=== PATIENT | male | born 1930 | race Caucasian/White ===

== ENCOUNTER 2016-12-09 08:31 | Outpatient (CLI) | payer OTHER, MEDICARE | END 2016-12-09 08:32 | disposition home or self-care (01) | DX: E78.2 Mixed hyperlipidemia (principal); I10 Essential (primary) hypertension; Z79.899 Other long term (current) drug therapy; R97.20 Elevated prostate specific antigen [PSA] ==

== ENCOUNTER 2018-03-10 08:00 | Outpatient (CLI) | payer OTHER, MEDICARE ==
[2018-03-10 13:31] LABS: BASOPHILS % (AUTO) 0.5 %; EOSINOPHILS # (AUTO) 0.3 10^3/uL (0.0-0.7); EOSINOPHILS % (AUTO) 4.9 %; HGB - HEMOGLOBIN 12.7 g/dL (14.0-18.0); LYMPHOCYTES # (AUTO) 1.5 10^3/uL (1.5-3.5); LYMPHOCYTES % (AUTO) 23.8 %; MEAN CORPUSCULAR HEMOGLOBIN 29.5 pg (27.0-31.0); MEAN CORPUSCULAR HGB CONC 32.7 g/dL (32.0-36.0); MEAN PLATELET VOLUME 9.2 fL (7.4-11.4); MONOCYTES % (AUTO) 14.9 %; NEUTROPHILS # (AUTO) 3.6 10^3/uL (1.5-6.6); NEUTROPHILS % (AUTO) 55.9 %; PLT - PLATELET COUNT 229 10^3/uL (130-450); RED CELL DISTRIBUTION WIDTH 14.9 % (12.0-15.0); WHITE BLOOD COUNT 6.4 x10^3/uL (4.8-10.8)
[2018-03-10 13:39] LABS: ALBUMIN 3.5 g/dL (3.2-5.5); BILIRUBIN,TOTAL 0.9 mg/dL (0.2-1.0); CREATININE 1.2 mg/dL (0.6-1.2); TOTAL PROTEIN 7.1 g/dL (6.7-8.2); URIC ACID 7.9 mg/dL (2.6-7.2)
[2018-03-10 13:50] LABS: PSA FREE 1.88 ng/mL (0.16-2.81)
[2018-03-10 13:51] LABS: PSA TOTAL 7.84 ng/mL (0.000-2.000)
== END 2018-03-10 08:01 | disposition home or self-care (01) ==
LOC: LAB.R 08:00
PROVIDERS: ATTEND Internal Medicine
DX: M10.9 Gout, unspecified (principal); J45.909 Unspecified asthma, uncomplicated; I10 Essential (primary) hypertension; Z87.898 Personal history of other specified conditions; Z12.5 Encounter for screening for malignant neoplasm of prostate
CPT/HCPCS: 80053; 84154; 84550; 85025

== ENCOUNTER 2018-03-17 09:12 | Outpatient (CLI) | payer OTHER, MEDICARE ==
[2018-03-17 14:17] LABS: HB2 TOTAL 13.9 g/dL; HEMOGLOBIN A1C 0.51 g/dL; HEMOGLOBIN A1C % 5.5 % (4.6-6.2)
== END 2018-03-17 09:13 | disposition home or self-care (01) ==
LOC: LAB.R 09:12
PROVIDERS: ATTEND Internal Medicine
DX: R73.9 Hyperglycemia, unspecified (principal)
CPT/HCPCS: 82947; 83036

== ENCOUNTER 2018-07-28 08:34 | Outpatient (CLI) | payer MEDICARE, OTHER ==
[2018-07-28 14:42] LABS: CALCIUM 9.1 mg/dL (8.5-10.3); CREATININE 1.1 mg/dL (0.6-1.2)
== END 2018-07-28 08:35 | disposition home or self-care (01) ==
LOC: LAB.R 08:34
PROVIDERS: ATTEND Internal Medicine
DX: I10 Essential (primary) hypertension (principal)
CPT/HCPCS: 80048

== ENCOUNTER 2018-08-16 08:30 | Outpatient (CLI) | payer OTHER, MEDICARE ==
[2018-08-16 22:45] LABS: CALCIUM 9.1 mg/dL (8.5-10.3); CREATININE 1.3 mg/dL (0.6-1.2)
== END 2018-08-16 08:31 | disposition home or self-care (01) ==
LOC: LAB.R 08:30
PROVIDERS: ATTEND Internal Medicine
DX: I10 Essential (primary) hypertension (principal)
CPT/HCPCS: 80048

== ENCOUNTER 2019-09-13 10:38 | Emergency (ER) | payer MEDICARE, OTHER ==
[2019-09-13 11:08] LABS: EOSINOPHILS % (AUTO) 1.1 %; HGB - HEMOGLOBIN 13.9 g/dL (14.0-18.0); LYMPHOCYTES # (AUTO) 1.1 10^3/uL (1.5-3.5); LYMPHOCYTES % (AUTO) 29.6 %; MEAN CORPUSCULAR HEMOGLOBIN 29.8 pg (27.0-31.0); MEAN CORPUSCULAR HGB CONC 31.7 g/dL (32.0-36.0); MEAN PLATELET VOLUME 10.8 fL (7.4-11.4); MONOCYTES # (AUTO) 0.6 10^3/uL (0.0-1.0); MONOCYTES % (AUTO) 15.4 %; NEUTROPHILS % (AUTO) 53.6 %; PLT - PLATELET COUNT 196 10^3/uL (130-450); RED BLOOD COUNT 4.66 10^6/uL (4.70-6.10); RED CELL DISTRIBUTION WIDTH 13.3 % (12.0-15.0); WHITE BLOOD COUNT 3.7 x10^3/uL (4.8-10.8)
[2019-09-13 11:19] LABS: ALBUMIN 3.9 g/dL (3.2-5.5); ALBUMIN/GLOBULIN RATIO 1.1 (1.0-2.2); BILIRUBIN,TOTAL 0.8 mg/dL (0.2-1.0); CALCIUM 8.8 mg/dL (8.5-10.3); CREATININE 1.5 mg/dL (0.6-1.2); TOTAL PROTEIN 7.4 g/dL (6.7-8.2)
--- NOTE | 2019-09-13 11:28 | ED Physician Documentation ---
PD HPI DYSPNEA - Stated complaint Stated Complaint: RAPID HR - Chief complaint Chief Complaint: Cardiac - History obtained from History obtained from: Patient - History of Present Illness Timing - onset: How many days ago (several) Timing - onset during: Light activity Timing - duration: Days (5) Timing - details: Gradual onset, Still present Inciting event(s): URI (The patient is having some cough and has noticed some tightness with breathing and shortness of breath with walking. He denies any pedal edema. He did not have chest pain per se. He did feel like his heart rate was going fast when he was doing activity such as walking. He tried to make an appointment with his primary care but they referred him to the ER for further evaluation. He does have a history of some lung disease in the past. No history of coronary disease nor irregular heartbeats.). No: Out of meds Improved by: Rest Worsened by: Exertion, Coughing Associated symptoms: Cough, Wheezing, Palpitations. No: Fever, Chest pain / discomfort, Bilateral edema Similar symptoms before: Has not had sx before Review of Systems Constitutional: reports: Myalgias, Fatigue. denies: Fever Nose: reports: Congestion. denies: Rhinorrhea / runny nose Throat: denies: Sore throat Respiratory: reports: Dyspnea, Cough, Wheezing GI: denies: Abdominal Pain, Nausea, Vomiting, Diarrhea Neurologic: reports: Generalized weakness. denies: Focal weakness, Near syncope, Altered mental status, Headache PD PAST MEDICAL HISTORY - Past Medical History Cardiovascular: Hypertension Respiratory: Asthma Neuro: None Endocrine/Autoimmune: None - Past Surgical History Past Surgical History: No - Present Medications Home Medications: Ambulatory Orders Medication Instructions Recorded Confirmed Hydrochlorothiazide 12.5 mg PO DAILY 11/18/13 11/18/13 Lisinopril [Zestril] 10 mg PO DAILY 11/18/13 11/18/13 amLODIPine [Norvasc] 5 mg PO DAILY 11/18/13 11/18/13 Albuterol 2.5 mg INH Q4H PRN #30 neb 09/13/19 Benzonatate [Tessalon Perle] 100 mg PO TID PRN #25 capsule 09/13/19 dexAMETHasone [Decadron] 4 mg PO DAILY #7 tablet 09/13/19 - Allergies Allergies/Adverse Reactions: Allergies Allergy/AdvReac Type Severity Reaction Status Date / Time No Known Drug Allergies Allergy Verified 09/13/19 10:50 - Social History Does the pt smoke?: No Smoking Status: Never smoker Does the pt drink ETOH?: No Does the pt have substance abuse?: No - Immunizations Immunizations are current?: Yes - POLST Patient has POLST: No PD ED PE NORMAL - Vitals Vital signs reviewed: Yes - General General: Alert and oriented X 3, No acute distress, Well developed/nourished - HEENT HEENT: Moist mucous membranes, Pharynx benign - Neck Neck: Supple, no meningeal sign, No adenopathy, No JVD, No bruit - Cardiac Cardiac: RRR, No murmur - Respiratory Respiratory: No: Clear bilaterally (diminished sounds with some exp wheezing; no coarse sounds. No crackles. ) - Abdomen Abdomen: Soft, Non tender - Male Male : Deferred - Rectal Rectal: Deferred - Back Back: No CVA TTP - Derm Derm: Normal color, Warm and dry - Extremities Extremities: No tenderness to palpate, Normal ROM s pain, No edema, No calf tenderness / cord - Neuro Neuro: Alert and oriented X 3, No motor deficit, Normal speech Results - Vitals Vitals: Vital Signs - 24 hr 09/13/19 09/13/19 09/13/19 10:47 11:23 12:23 Temperature 36.3 C L Heart Rate 68 58 L 54 L Respiratory 14 18 9 L Rate Blood Pressure 152/80 H 110/73 O2 Saturation 96 94 09/13/19 09/13/19 13:52 14:07 Temperature Heart Rate 64 63 Respiratory 14 18 Rate Blood Pressure 131/73 H 129/74 O2 Saturation 96 94 Oxygen O2 Source Room air - EKG (time done) 10:46 Rate: Rate (enter#) (66) Rhythm: NSR [place]: Normal Intervals: Normal [place] QRS: Normal Ischemia: Normal ST segments. No: ST elevation c/w ischemia, ST depression - Labs Labs: Laboratory Tests 09/13/19 09/13/19 09/13/19 10:55 10:55 10:55 WBC 3.7 L RBC 4.66 L Hgb 13.9 L Hct 43.8 MCV 94.0 MCH 29.8 MCHC 31.7 L RDW 13.3 Plt Count 196 MPV 10.8 Neut # (Auto) 2.0 Lymph # (Auto) 1.1 L [place] # (Auto) 0.6 Eos # (Auto) 0.0 Baso # (Auto) 0.0 Absolute Nucleated RBC 0.00 Nucleated RBC % 0.0 Sodium 141 Potassium 4.2 Chloride 106 Carbon Dioxide 25 Anion Gap 10.0 BUN 32 H Creatinine 1.5 H Estimated GFR (MDRD) 44 L Glucose 131 H Calcium 8.8 Magnesium Total Bilirubin 0.8 AST 25 ALT 20 Alkaline Phosphatase 54 Troponin I High Sens 4.8 B-Natriuretic Peptide Total Protein 7.4 Albumin 3.9 Globulin 3.5 Albumin/Globulin Ratio 1.1 Lipase 19 L 09/13/19 09/13/19 10:55 10:55 WBC RBC Hgb Hct MCV MCH MCHC RDW Plt Count MPV Neut # (Auto) Lymph # (Auto) [place] # (Auto) Eos # (Auto) Baso # (Auto) Absolute Nucleated RBC Nucleated RBC % Sodium Potassium Chloride Carbon Dioxide Anion Gap BUN Creatinine Estimated GFR (MDRD) Glucose Calcium Magnesium 2.2 Total Bilirubin AST ALT Alkaline Phosphatase Troponin I High Sens B-Natriuretic Peptide 8 Total Protein Albumin Globulin Albumin/Globulin Ratio Lipase - Rads (name of study) chest xray Radiology: Prelim report reviewed (no acute findings), EMP read contemporaneously (hyperinflated lungs c/w COPD. ), See rad report PD MEDICAL DECISION MAKING - ED course Complexity details: reviewed results (CXR with hyperinflated .ungs c/w COPD; no pneumonia. ), considered differential (Consider irregular heartbeat or fibrillation versus CHF or CT. Will check EKG and labs. Also consider pneumonia or effusion or pneumothorax versus exacerbation of COPD and asthma. 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 Continue your other usual medications. Add Decadron steroid daily for a week. Use your albuterol home nebulizer inhaler 3 or 4 times daily for the next week and add extra doses if needed for wheezing and shortness of breath. Use Tessalon if needed for cough suppression. Tylenol if needed for fevers or pains. There is no signs of heart cause based on your EKG and blood tests. There is no pneumonia seen on x-ray. We will treat this as bronchitis with exacerbation of your asthma/COPD. Recheck if not improving well over the next 2 to 3 days return sooner if worsening. Discharge Date/Time: 09/13/19 14:10
--- NOTE | 2019-09-13 11:38 | XRAY Report ---
Reason: Cp Procedure Date: 09/13/2019 Accession Number: [id number] / [id number] Procedure: XR - Chest 1 View X-Ray CPT Code: 24695 Final Report FULL RESULT: EXAM: CHEST RADIOGRAPHY EXAM DATE: 09/13/2019 11:13 AM HISTORY: Chest pain COMPARISON: XR CHEST PA AND LAT 11/17/2010 10:46 PM TECHNIQUE: Single View FINDINGS: Lungs/Pleura: The lungs are clear. No consolidation, edema or pleural effusion. Cardiomediastinal silhouette: Unremarkable accounting for technique. Other: None. IMPRESSION: No acute disease. RADIA
[2019-09-13] MEDS ORDERED: IPRATROPIUM/ALBUTEROL 3 ML NEB INH STA (12:04)
[2019-09-13] MEDS ORDERED: DEXAMETHASONE 10 MG/ML VIAL IVP STA (12:04)
[2019-09-13] MEDS ORDERED: DIPHENOX/ATROPINE 2.5/0.025 MG TABLET PO STA (12:04)
[2019-09-13] MEDS ORDERED: BENZONATATE 100 MG CAPSULE PO STA (12:04)
[2019-09-13 14:08] VITALS: BP 129/74
== END 2019-09-13 14:10 | disposition home or self-care (01) ==
LOC: ED 10:38
DX: J44.1 Chronic obstructive pulmonary disease with (acute) exacerbation (principal); I10 Essential (primary) hypertension
CPT/HCPCS: 36415; 71045; 80053; 83690; 83735; 83880; 84484; 85025; 93005; 94640; 96374; 99284; A9270

== ENCOUNTER 2021-12-17 13:00 | Outpatient (CLI) | payer MEDICARE ==
[2021-12-17 18:44] LABS: BASOPHILS % (AUTO) 0.3 %; EOSINOPHILS # (AUTO) 0.1 10^3/uL (0.0-0.7); EOSINOPHILS % (AUTO) 1.5 %; HCT - HEMATOCRIT 41.9 % (42.0-52.0); HGB - HEMOGLOBIN 13.5 g/dL (14.0-18.0); LYMPHOCYTES # (AUTO) 1.1 10^3/uL (1.5-3.5); MEAN CORPUSCULAR HGB CONC 32.2 g/dL (32.0-36.0); MEAN CORPUSCULAR VOLUME 96.1 fL (80.0-94.0); MEAN PLATELET VOLUME 10.4 fL (7.4-11.4); MONOCYTES # (AUTO) 0.8 10^3/uL (0.0-1.0); MONOCYTES % (AUTO) 12.1 %; NEUTROPHILS # (AUTO) 4.7 10^3/uL (1.5-6.6); NEUTROPHILS % (AUTO) 69.8 %; PLT - PLATELET COUNT 237 10^3/uL (130-450); RED BLOOD COUNT 4.36 10^6/uL (4.70-6.10); RED CELL DISTRIBUTION WIDTH 13.6 % (12.0-15.0); WHITE BLOOD COUNT 6.7 x10^3/uL (4.8-10.8)
[2021-12-17 18:56] LABS: ALBUMIN 3.5 g/dL (3.2-5.5); BILIRUBIN,TOTAL 0.7 mg/dL (0.2-1.0); CALCIUM 9.3 mg/dL (8.5-10.3); CREATININE 1.2 mg/dL (0.6-1.2); POTASSIUM 4.6 mmol/L (3.5-5.0)
[2021-12-17 19:04] LABS: THYROID STIMULATING HORMONE 0.78 uIU/mL (0.34-5.60)
== END 2021-12-17 13:01 | disposition home or self-care (01) ==
LOC: LAB.N 13:00
PROVIDERS: ATTEND Nurse Practitioner Family
DX: R42 Dizziness and giddiness (principal); I10 Essential (primary) hypertension
CPT/HCPCS: 36415; 80053; 84443; 85025

== ENCOUNTER 2021-12-21 13:05 | Outpatient (CLI) | payer MEDICARE ==
--- NOTE | 2021-12-21 14:31 | Ultrasound Report ---
PROCEDURE: Ext Limited Non Vascular INDICATIONS: SWELLING ON LOWER LEG, MASS TECHNIQUE: Real-time scanning was performed of the calf, with image documentation. COMPARISON: None. FINDINGS: Sonographic images the catheter demonstrate a focus of complex echogenicity measuring 6.8 x 1.6 x 2.6 cm. IMPRESSION: Complex focus of echogenicity which could represent hematoma or abscess. Surrounding gilbert ma is present. Reviewed by: Luzma Lara MD on 12/21/2021 2:30 PM PST Approved by: Luzma Lara MD on 12/21/2021 2:30 PM PST Station ID: [id number]
== END 2021-12-21 13:06 | disposition home or self-care (01) ==
LOC: DI 13:05
PROVIDERS: ATTEND Nurse Practitioner Family
DX: R93.6 Abnormal findings on diagnostic imaging of limbs (principal); R93.89 Abnormal findings on diagnostic imaging of other specified body structures

== ENCOUNTER 2021-12-27 14:00 | Outpatient (CLI) | payer MEDICARE | END 2021-12-27 14:01 | disposition home or self-care (01) | LOC: MAC.MOP 14:00 | PROVIDERS: ATTEND Nurse Practitioner Family | DX: R42 Dizziness and giddiness (principal); I10 Essential (primary) hypertension | CPT/HCPCS: 93242 ==

== ENCOUNTER 2022-01-09 16:25 | Outpatient (CLI) | payer MEDICARE | END 2022-01-09 16:26 | disposition home or self-care (01) | LOC: MAC.MOP 16:25 | PROVIDERS: ATTEND Nurse Practitioner Family | DX: R00.1 Bradycardia, unspecified (principal); I47.1 Supraventricular tachycardia; I49.1 Atrial premature depolarization; I49.3 Ventricular premature depolarization | CPT/HCPCS: 93244 ==

== ENCOUNTER 2022-01-20 13:26 | Emergency (ER) | payer MEDICARE ==
[2022-01-20 13:31] VITALS: BP 140/72
--- NOTE | 2022-01-20 13:34 | ED Physician Documentation ---
PD HPI LOWER EXT INJURY - Stated complaint Stated Complaint: LT LEG PX - Chief complaint Chief Complaint: Ext Problem - History obtained from History obtained from: Patient - History of Present Illness PD HPI LOW EXT INJURY LOCATION: Left, Lower leg Type of injury: No: Fall, Twist Where injury occurred: Home Timing - onset: How many days ago (4) Timing - duration: Days (4 days progressive redness swelling and tenderness over the anterolateral left lower leg. Had small skin sore 3 weeks ago medial ankle but that resolved. No noted direct impact or skin sores.) Timing - details: Gradual onset, Still present Worsened by: Palpating Associated symptoms: Swelling, Discolored (redness). No: Weakness, Numbness Contributing factors: No: Anticoagulated, Prior ortho surgery Similar symptoms before: Has not had sx before (has had lump lower leg for months without noted injury. Had U/S done office visit showing hematoma. Had not been infected in the past.) Recently seen: Clinic (seen in clinic today and referred to ER for eval.) Review of Systems Constitutional: denies: Fever, Chills Nose: denies: Rhinorrhea / runny nose, Congestion Throat: denies: Sore throat Respiratory: denies: Cough GI: denies: Nausea, Vomiting, Diarrhea Neurologic: denies: Focal weakness, Numbness, Near syncope PD PAST MEDICAL HISTORY - Past Medical History Cardiovascular: Hypertension Respiratory: Asthma Neuro: None Endocrine/Autoimmune: None - Past Surgical History Past Surgical History: No - Present Medications Home Medications: Ambulatory Orders Medication Instructions Recorded Confirmed amLODIPine [Norvasc] 5 mg PO DAILY 11/18/13 01/20/22 hydroCHLOROthiazide 12.5 mg PO DAILY 11/18/13 01/20/22 [Hydrochlorothiazide] Albuterol 2.5 mg INH Q4H PRN #30 neb 09/13/19 01/20/22 cephALEXin [Keflex] 500 mg PO QID 6 Days #24 cap 01/20/22 - Allergies Allergies/Adverse Reactions: Allergies Allergy/AdvReac Type Severity Reaction Status Date / Time No Known Drug Allergies Allergy Verified 01/20/22 13:31 - Social History Does the pt smoke?: No Smoking Status: Never smoker Does the pt drink ETOH?: No Does the pt have substance abuse?: No - Immunizations Immunizations are current?: Yes - POLST Patient has POLST: No PD ED PE NORMAL - Vitals Vital signs reviewed: Yes - General General: Alert and oriented X 3, No acute distress, Well developed/nourished - Derm Derm: Normal color, Warm and dry - Extremities Extremities: Other (left anterolateral lower leg with raised tender area that is fluctuant and red. Surrounding redness and edema of soft tissue. Edema of the lower leg and ankle, with some redness down to top of ankle. No calf tender per se. Popliteal not tender. ) - Neuro Neuro: Alert and oriented X 3, No motor deficit, No sensory deficit, Normal speech Results - Vitals Vitals: Vital Signs - 24 hr 01/20/22 13:29 Temperature 36.8 C Heart Rate 81 Respiratory 16 Rate Blood Pressure 140/72 H O2 Saturation 97 Oxygen O2 Source Room air - Labs Labs: Laboratory Tests 01/20/22 01/20/22 14:21 14:21 WBC 12.4 H RBC 3.85 L Hgb 11.9 L Hct 36.9 L MCV 95.8 H MCH 30.9 MCHC 32.2 RDW 13.1 Plt Count 173 MPV 10.5 Neut # (Auto) 9.5 H Lymph # (Auto) 0.9 L [place] # (Auto) 1.9 H Eos # (Auto) 0.0 Baso # (Auto) 0.0 Absolute Nucleated RBC 0.00 Nucleated RBC % 0.0 Manual Slide Review Indicated RBC Morph Micro Appear 1+ ANISOCYTOSIS Sodium 142 Potassium 4.0 Chloride 103 Carbon Dioxide 27 Anion Gap 12.0 BUN 33 H Creatinine 1.6 H Estimated GFR (MDRD) 41 L Glucose 148 H Calcium 8.9 Total Bilirubin 1.5 H AST 16 ALT 13 Alkaline Phosphatase 54 Total Creatine Kinase 51 Total Protein 6.8 Albumin 3.3 Globulin 3.5 Albumin/Globulin Ratio 0.9 L Lipase 21 L - Rads (name of study) duplex left leg Radiology: Prelim report reviewed (no DVT; noted again is hematoma left anterolateral lower leg.), See rad report Procedures - Abscess I&D (location) left lower leg Preparation: Confirmed with ultrasound (prior hematoma not resolved and now with cellulitis/red/tender over the area and surround tissue.), Lidocaine 1%, With epi Incision: Incised with scalpel, Irrigated, Other (had drainage of old blood appearance and squeezed some clots out c/w old hematoma. No purulence.) PD MEDICAL DECISION MAKING - ED course Complexity details: reviewed old records (prior U/S showing hematoma appearance collection lower leg.) Departure - Departure Disposition: 01 Home, Self Care Clinical Impression: Hematoma Cellulitis Qualifiers: Site of cellulitis: extremity Site of cellulitis of extremity: lower extremity Laterality: left Qualified Code(s): L03.116 - Cellulitis of left lower limb Clinical Impression: (Ruled Out): Deep vein thrombosis Condition: Stable Record reviewed to determine appropriate education?: Yes Instructions: ED Infec Skin Cellulitis Follow-Up: Tony Osorio MD [Primary Care Provider] - Prescriptions: cephALEXin [Keflex] 500 mg PO QID 6 Days #24 cap Comments: Use the Rashid wrap to help with swelling. Elevate and rest your leg often to reduce swelling as well. For the infection, I would use warm soaks or warm towels for the lower leg once or twice daily to 3 times daily to help promote good blood flow to the area and promote further drainage from the incision. Cephalexin 4 times a day for the next 6 days as directed for the infection. Tylenol every 4-6 hours if needed for pains. There is no sign of blood clots in your veins by ultrasound. The lump in the area looks like it was an old hematoma that had not resorbed. It now seems in the area of the infection so we did dai it to drain out much of the old blood. The wound itself should heal up okay over the next several days to a week. I would anticipate improvement in the redness and swelling over the next several days and resolved within a week or so. Recheck if not improved generally over the next several days to week. I transmitted your prescription to [facility] in [place]. Discharge Date/Time: 01/20/22 16:33
[2022-01-20] MEDS ORDERED: cefTRIAXone 1 GM VIAL IVP STA (14:11)
[2022-01-20] MEDS ORDERED: KETOROLAC 15 MG/ML VIAL IVP STA (14:11)
[2022-01-20 14:27] LABS: BASOPHILS % (AUTO) 0.1 %; EOSINOPHILS % (AUTO) 0.1 %; HCT - HEMATOCRIT 36.9 % (42.0-52.0); HGB - HEMOGLOBIN 11.9 g/dL (14.0-18.0); LYMPHOCYTES # (AUTO) 0.9 10^3/uL (1.5-3.5); LYMPHOCYTES % (AUTO) 7.5 %; MEAN CORPUSCULAR HEMOGLOBIN 30.9 pg (27.0-31.0); MEAN CORPUSCULAR HGB CONC 32.2 g/dL (32.0-36.0); MEAN CORPUSCULAR VOLUME 95.8 fL (80.0-94.0); MEAN PLATELET VOLUME 10.5 fL (7.4-11.4); MONOCYTES # (AUTO) 1.9 10^3/uL (0.0-1.0); MONOCYTES % (AUTO) 15.5 %; NEUTROPHILS # (AUTO) 9.5 10^3/uL (1.5-6.6); NEUTROPHILS % (AUTO) 76.5 %; PLT - PLATELET COUNT 173 10^3/uL (130-450); RED BLOOD COUNT 3.85 10^6/uL (4.70-6.10); RED CELL DISTRIBUTION WIDTH 13.1 % (12.0-15.0); WHITE BLOOD COUNT 12.4 x10^3/uL (4.8-10.8)
[2022-01-20 14:29] LABS: SLIDE REVIEW? Indicated
[2022-01-20 14:39] LABS: ALBUMIN 3.3 g/dL (3.2-5.5); ALBUMIN/GLOBULIN RATIO 0.9 (1.0-2.2); BILIRUBIN,TOTAL 1.5 mg/dL (0.2-1.0); CALCIUM 8.9 mg/dL (8.5-10.3); CREATININE 1.6 mg/dL (0.6-1.2); TOTAL PROTEIN 6.8 g/dL (6.7-8.2)
[2022-01-20 14:55] LABS: RBC MORPHOLOGY (MULTIPLE) 1+ ANISOCYTOSIS (NORMAL)
--- NOTE | 2022-01-20 16:00 | Ultrasound Report ---
PROCEDURE: Duplex Ext Veins Left INDICATIONS: left lower leg swelling/redness. TECHNIQUE: Real-time imaging, as well as color and pulse Doppler interrogation, were performed of the lower extr emity deep veins from the inguinal ligament to the popliteal fossa. COMPARISON: None. FINDINGS: The deep veins are normally compressible, and free of intraluminal thrombus. Color and pu lse Doppler demonstrate normal phasic intraluminal flow. There is normal augmentation response to di stal compression maneuver. IMPRESSION: No sonographic evidence of DVT. Superficial complex fluid collection in the left lateral calf similar to 12/21/2021 examination. Reviewed by: Washington Lovett MD on 01/20/2022 3:58 PM PDT Approved by: Washington Lovett MD on 01/20/2022 3:58 PM PDT Station ID: [id number]
== END 2022-01-20 16:33 | disposition home or self-care (01) ==
LOC: ED 13:26
DX: L03.116 Cellulitis of left lower limb (principal); I10 Essential (primary) hypertension
CPT/HCPCS: 10060; 36415; 80053; 82550; 83690; 85025; 99283